=== PATIENT | female | born 1980 | race Two or more races ===

== ENCOUNTER 2025-04-12 10:20 | Inpatient (IN) | payer OTHER ==
[~2025-04-12] VITALS: Ht 165.1 cm; Wt 59.9 kg
[2025-04-12 10:58] VITALS: BP 102/62
[2025-04-12 11:02] VITALS: BP 113/70
[2025-04-20] MEDS ORDERED: POVIDONE-IODINE 118 ML BOTT TOP ONE (07:38)
[2025-04-20] MEDS ORDERED: CHLORHEXIDINE GLUCONATE 120 ML BOTTLE TOP ONE (07:38)
[2025-04-20] MEDS ORDERED: CLINDAMYCIN PHOSPHATE 150 MG/ML (900mg) ONE (07:38)
[2025-04-20] MEDS ORDERED: MORPHINE SULFATE 4 MG/ML CARTRIDGE IV SCH (09:53)
[2025-04-20] MEDS ORDERED: PROMETHAZINE HCL 50 MG/ML AMPUL IV SCH (09:54)
[2025-04-20] MEDS ORDERED: RINGERS SOLUTION,LACTATED 1,000 ML IV SCH (10:00)
[2025-04-20] MEDS ORDERED: MORPHINE SULFATE 4 MG/ML VIAL IV ONE ×4 (10:30→12:00)
[2025-04-20 11:33] LABS: BASO % 0.4 % (0.1-1.2); EOS # 0.13 (0.04-0.54); EOS % 2.3 % (0.7-7.0); LYMPH # 1.80 (1.18-3.74); LYMPH % 32.1 % (19.3-53.1); MEAN PLATELET VOLUME 9.90 fl (9.4-12.4); MONO # 0.38 (0.24-0.82); MONO % 6.8 % (4.7-12.5); NEUT # 3.26 (1.56-6.13); NEUT % 58.2 % (34.0-71.1); RED CELL DISTRIBUTION WIDTH 17.5 % (11.6-14.4)
[2025-04-20 13:11] VITALS: BP 102/62
[2025-04-20] MEDS ORDERED: SIMETHICONE 125 MG CAPSULE PO SCH (14:00)
[2025-04-20 16:20] VITALS: BP 124/62
[2025-04-20] MEDS ORDERED: ACETAMINOPHEN WITH CODEINE 1 UDTAB TABLET PO PRN (17:00)
[2025-04-20 19:00] VITALS: BP 119/73
[2025-04-21 01:00] VITALS: BP 119/63
[2025-04-21 06:05] VITALS: BP 116/65
[2025-04-21 08:15] VITALS: BP 113/61
[2025-04-21] MEDS ORDERED: ACETAMINOPHEN WITH CODEINE 1 UDTAB TABLET PO STA (09:10)
[2025-04-21] MEDS ORDERED: Tylenol #3 PO (09:14)
== END 2025-04-21 09:25 | disposition home or self-care (01) | DRG 743 ==
LOC: O/R 04-20 06:00 → OB/GYN 04-20 06:00 → SURH 04-20 10:45 → OB/GYN 04-20 12:26
PROVIDERS: ADMIT Obstetrics & Gynecology; ATTEND Obstetrics & Gynecology
PROC: 0UT77ZZ Resection of Bilateral Fallopian Tubes, Via Natural or Artificial Opening (ICD-10-PCS; 2025-04-20)
PROC: 0JQC0ZZ Repair Pelvic Region Subcutaneous Tissue and Fascia, Open Approach (ICD-10-PCS; 2025-04-20)
PROC: 0USG0ZZ Reposition Vagina, Open Approach (ICD-10-PCS; 2025-04-20)
PROC: 0TJB8ZZ Inspection of Bladder, Via Natural or Artificial Opening Endoscopic (ICD-10-PCS; 2025-04-20)
PROC: 0UT97ZZ Resection of Uterus, Via Natural or Artificial Opening (ICD-10-PCS; principal; 2025-04-20 11:30)
DX: D25.1 Intramural leiomyoma of uterus (principal); D50.0 Iron deficiency anemia secondary to blood loss (chronic); N81.11 Cystocele, midline; N92.0 Excessive and frequent menstruation with regular cycle

== ENCOUNTER 2025-04-30 11:11 | Inpatient (IN) | payer OTHER ==
[~2025-04-30] VITALS: Ht 160 cm; Wt 59.0 kg
[~2025-04-30 11:11] MED LIST: Tylenol #3 PO
--- NOTE | 2025-04-30 11:48 | NUR ---
SE RECIBE PTE ALERTA Y ORIENTADA X3. REFIERE QUE EL 04/20/[address] MILTON MIMOSO LA REALIZO TRISTIAN HISTERECTOMIA Y DESDE EL MIERCOLES PASADO COMENZO CON FIEBRE, DOLOR ABDOMINAL Y CONSTIPACION. SE MIDE SV Y SE UBICA
[2025-04-30] MEDS ORDERED: 0.9 % SODIUM CHLORIDE 1,000 ML IV SCH (12:15)
[2025-04-30 12:54] LABS: BASO % 0.2 % (0.1-1.2); EOS # 0.05 (0.04-0.54); EOS % 0.2 % (0.7-7.0); LYMPH # 1.41 (1.18-3.74); LYMPH % 6.9 % (19.3-53.1); MEAN PLATELET VOLUME 9.30 fl (9.4-12.4); MONO # 1.58 (0.24-0.82); MONO % 7.7 % (4.7-12.5); NEUT # 17.38 (1.56-6.13); NEUT % 84.6 % (34.0-71.1); RED CELL DISTRIBUTION WIDTH 15.3 % (11.6-14.4)
[2025-04-30 13:16] LABS: URINE APPEARANCE Clear; URINE BILIRRUBIN Negative (NEGATIVE); URINE BLOOD Small; URINE COLOR Dark Yellow; URINE GLUCOSE Negative (NEGATIVE); URINE KETONE 15 (NEGATIVE); URINE LEUKOCYTE Moderate; URINE NITRATE Negative; URINE PROTEIN 30 (NEGATIVE); URINE UROBILINOGEN 1.0 E.U./dl
[2025-04-30 13:20] LABS: URINE BACTERIA 2267.8 uL (0.0-1933); URINE EPITHELIAL CELLS 21.8 uL (0.0-38.8); URINE RBC 31.0 uL (0.0-20.8); URINE WBC 337.6 uL (0.0-23.2)
--- NOTE | 2025-04-30 13:20 | NUR ---
SE ORIENTA PTE SOBRE TX A SEGUIR, LA MISMA REFIERE ENTENDER. SE LEN MUESTRA DE LAB, SE CANALIZA Y SE ADMINISTRA MED ARNOLDO ORDEN MEDICA
[2025-04-30 13:21] LABS: BUN CREA RATIO 14.0 (7.0-25.0); CREATININE SERUM 0.56 mg/dL (0.55-1.02); GFR 118.15; GLUCOSE FASTING 99.0 mg/dL (65-100); OSMOLALITY SERUM 274.0 MOSM/KG (275-295)
[2025-04-30 14:03] LABS: URINE CAST 0.58 uL (0.0-1.40)
[2025-04-30 14:04] LABS: URINE CRYSTALS NEGATIVE /HPF; URINE MUCUS HEAVY; URINE YEAST NEGATIVE /hpf
[2025-04-30] MEDS ORDERED: METRONIDAZOLE/SODIUM CHLORIDE 500 MG/100 ML PIGGYBACK IV SCH (20:12)
[2025-04-30] MEDS ORDERED: ACETAMINOPHEN WITH CODEINE 1 UDTAB TABLET PO PRN (20:15)
[2025-04-30] MEDS ORDERED: RINGERS SOLUTION,LACTATED 1,000 ML IV SCH (20:30)
[2025-04-30] MEDS ORDERED: DOXYCYCLINE HYCLATE 100MG IV SCH (21:00)
[2025-04-30] MEDS ORDERED: SIMETHICONE 125 MG CAPSULE PO SCH (21:22)
[2025-04-30] MEDS ORDERED: METOCLOPRAMIDE HCL 10 MG TABLET PO SCH (21:22)
[2025-05-01 03:40] VITALS: BP 107/68
[2025-05-01 07:57] VITALS: BP 103/61
[2025-05-01] MEDS ORDERED: MORPHINE SULFATE 4 MG/ML VIAL IV SCH (09:05)
[2025-05-01] MEDS ORDERED: TRAMADOL HCL 50 MG TABLET PO SCH (09:06)
[2025-05-01] MEDS ORDERED: AZTREONAM 1,000 MG VIAL IV STA (11:22)
[2025-05-01] MEDS ORDERED: LINEZOLID IN DEXTROSE 5% 600 MG/300 ML PIGGYBAG IV STA (11:22)
[2025-05-01] MEDS ORDERED: POLYETHYLENE GLYCOL 3350 17 GM BLIST.PACK PO SCH (11:23)
[2025-05-01 15:51] VITALS: BP 99/63
[2025-05-01] MEDS ORDERED: LINEZOLID IN DEXTROSE 5% 600 MG/300 ML PIGGYBAG IV SCH ×2 (17:00→21:00)
[2025-05-01] MEDS ORDERED: AZTREONAM 1,000 MG VIAL IV SCH ×3 (17:00→21:00)
[2025-05-01] MEDS ORDERED: LACTOBACILLUS ACIDOPHILUS 1 CAP CAP PO SCH (17:00)
[2025-05-01] MEDS ORDERED: ACETAMINOPHEN WITH CODEINE 1 UDTAB TABLET PO STA (19:02)
[2025-05-01] MEDS ORDERED: ACETAMINOPHEN WITH CODEINE 1 UDTAB TABLET PO PRN (19:15)
[2025-05-01] MEDS ORDERED: MIDAZOLAM HCL 2 MG/2 ML VIAL IV PUSH ONE (21:30)
[2025-05-01] MEDS ORDERED: fentaNYL CITRATE 50 MCG/ML AMPUL IV PUSH NR (21:30)
[2025-05-02] VITALS: BP 96/58
[2025-05-02 08:06] VITALS: BP 101/60
[2025-05-02] MEDS ORDERED: PROMETHAZINE HCL 25 MG/ML AMPUL IV SCH (08:47)
[2025-05-02] MEDS ORDERED: CHLORHEXIDINE GLUCONATE 120 ML BOTTLE TOP SCH (09:00)
[2025-05-02] MEDS ORDERED: CHLORHEXIDINE GLUCONATE 240 ML BOTTLE TOP SCH (09:00)
[2025-05-02 11:31] LABS: BASO % 0.3 % (0.1-1.2); EOS # 0.03 (0.04-0.54); EOS % 0.1 % (0.7-7.0); LYMPH # 0.74 (1.18-3.74); LYMPH % 3.7 % (19.3-53.1); MEAN PLATELET VOLUME 9.80 fl (9.4-12.4); MONO # 0.70 (0.24-0.82); MONO % 3.5 % (4.7-12.5); NEUT # 18.32 (1.56-6.13); NEUT % 91.4 % (34.0-71.1); RED CELL DISTRIBUTION WIDTH 15.3 % (11.6-14.4)
[2025-05-02 12:05] LABS: ALT/SGPT 39.0 U/L (12-78); AST/SGOT 29.0 U/L (15-37); BILIRUBIN TOTAL 0.35 mg/dL (0.3-1.2); BUN CREA RATIO 11.0 (7.0-25.0); CREATININE SERUM 0.55 mg/dL (0.55-1.02); GFR 120.63; GLOBULINA 4.4 G/DL (2.4-3.5); GLUCOSE FASTING 137.0 mg/dL (65-100); OSMOLALITY SERUM 277.0 MOSM/KG (275-295)
[2025-05-02 16:05] VITALS: BP 105/65
[2025-05-02 20:51] VITALS: BP 100/61
[2025-05-03 01:19] VITALS: BP 100/58
[2025-05-03 06:51] LABS: BASO % 0.2 % (0.1-1.2); EOS # 0.13 (0.04-0.54); EOS % 0.6 % (0.7-7.0); LYMPH # 1.87 (1.18-3.74); LYMPH % 8.9 % (19.3-53.1); MEAN PLATELET VOLUME 9.80 fl (9.4-12.4); MONO # 1.12 (0.24-0.82); MONO % 5.3 % (4.7-12.5); NEUT # 17.70 (1.56-6.13); NEUT % 84.0 % (34.0-71.1); RED CELL DISTRIBUTION WIDTH 15.8 % (11.6-14.4)
[2025-05-03 08:14] VITALS: BP 105/69
[2025-05-03] MEDS ORDERED: CLINDAMYCIN PHOSPHATE 150 MG/ML (900mg) IV STA (11:23)
[2025-05-03 14:12] LABS: BASO % 0.2 % (0.1-1.2); EOS # 0.17 (0.04-0.54); EOS % 0.7 % (0.7-7.0); LYMPH # 2.06 (1.18-3.74); LYMPH % 7.9 % (19.3-53.1); MEAN PLATELET VOLUME 9.40 fl (9.4-12.4); MONO # 1.37 (0.24-0.82); MONO % 5.2 % (4.7-12.5); NEUT # 22.00 (1.56-6.13); NEUT % 84.3 % (34.0-71.1); RED CELL DISTRIBUTION WIDTH 15.7 % (11.6-14.4)
[2025-05-03 17:57] LABS: BAND MAN 2.0 %; LYMPHOCYTE MAN 7.0 %; MONOCYTE MAN 3.0 %; NEUTROPHILS MAN 87.0 %
[2025-05-03 20:00] VITALS: BP 113/69
[2025-05-03] MEDS ORDERED: TRAMADOL HCL 50 MG TABLET PO SCH (21:00)
[2025-05-03] MEDS ORDERED: CLINDAMYCIN PHOSPHATE 150 MG/ML (900mg) IV SCH (21:00)
[2025-05-04 01:23] VITALS: BP 105/68
[2025-05-04] MEDS ORDERED: LINEZOLID 600 MG TABLET PO SCH (05:00)
[2025-05-04 09:19] VITALS: BP 111/68
[2025-05-04] MEDS ORDERED: FF) Daptomycin 500 MG/VIAL IV STA (09:57)
[2025-05-04 16:29] VITALS: BP 109/64
[2025-05-04] MEDS ORDERED: SOD FERRIC GLUC COMPLX/SUCROSE 125 MG in 0.9 % SODIUM CHLORIDE 100 ML IV SCH (17:00)
[2025-05-04 21:04] VITALS: BP 118/60
[2025-05-05] VITALS: BP 105/67
[2025-05-05 08:42] VITALS: BP 119/67
[2025-05-05] MEDS ORDERED: (FF) Daptomycin 50 MG/ML IV SCH (09:00)
[2025-05-05] MEDS ORDERED: FF) Daptomycin 500 MG/VIAL IV SCH (09:00)
[2025-05-05 11:58] LABS: BASO % 0.4 % (0.1-1.2); EOS # 0.27 (0.04-0.54); EOS % 1.5 % (0.7-7.0); LYMPH # 1.93 (1.18-3.74); LYMPH % 10.4 % (19.3-53.1); MEAN PLATELET VOLUME 9.30 fl (9.4-12.4); MONO # 0.99 (0.24-0.82); MONO % 5.3 % (4.7-12.5); NEUT # 14.80 (1.56-6.13); NEUT % 79.8 % (34.0-71.1); RED CELL DISTRIBUTION WIDTH 15.7 % (11.6-14.4)
[2025-05-05 12:27] LABS: ERYTHROCYTE SEDIMENTATION RATE 110 mm/hr (0-20)
[2025-05-05 16:41] VITALS: BP 119/59
[2025-05-05 20:30] VITALS: BP 125/77
[2025-05-06] VITALS: BP 105/67
[2025-05-06 08:00] VITALS: BP 126/83
[2025-05-06 16:00] VITALS: BP 119/61
[2025-05-07] VITALS: BP 111/67
[2025-05-07 07:18] LABS: BASO % 0.4 % (0.1-1.2); EOS # 0.31 (0.04-0.54); EOS % 2.1 % (0.7-7.0); LYMPH # 2.33 (1.18-3.74); LYMPH % 15.9 % (19.3-53.1); MEAN PLATELET VOLUME 9.10 fl (9.4-12.4); MONO # 0.94 (0.24-0.82); MONO % 6.4 % (4.7-12.5); NEUT # 10.26 (1.56-6.13); NEUT % 70.1 % (34.0-71.1); RED CELL DISTRIBUTION WIDTH 15.8 % (11.6-14.4)
[2025-05-07 07:41] LABS: ALT/SGPT 10.0 U/L (12-78); AST/SGOT 15.0 U/L (15-37); BILIRUBIN TOTAL 0.11 mg/dL (0.3-1.2); BUN CREA RATIO 17.0 (7.0-25.0); CREATININE SERUM 0.41 mg/dL (0.55-1.02); GFR 169.31; GLOBULINA 3.5 G/DL (2.4-3.5); GLUCOSE FASTING 87.0 mg/dL (65-100); OSMOLALITY SERUM 282.0 MOSM/KG (275-295)
[2025-05-07 08:19] LABS: BAND MAN 3.0 %; EOSINOPHIL MAN 1.0 %; LYMPHOCYTE MAN 16.0 %; METAMYELOCYTE 3.0 %; MONOCYTE MAN 3.0 %; MYELOCYTE 2.0 %; NEUTROPHILS MAN 72.0 %
[2025-05-07 09:24] VITALS: BP 119/60
[2025-05-07 16:45] VITALS: BP 120/74
[2025-05-08] VITALS: BP 110/68
[2025-05-08 07:45] VITALS: BP 118/68
[2025-05-08] MEDS ORDERED: FOLIC ACID 1 MG TABLET PO NR (14:00)
[2025-05-08 16:00] VITALS: BP 128/74
[2025-05-08] MEDS ORDERED: CYANOCOBALAMIN (VITAMIN B-12) 1,000 MCG/ML VIAL IM SCH (17:00)
[2025-05-08 20:00] VITALS: BP 114/68
[2025-05-09] VITALS: BP 125/71
[2025-05-09 07:04] LABS: BASO % 0.2 % (0.1-1.2); EOS # 0.29 (0.04-0.54); EOS % 2.0 % (0.7-7.0); LYMPH # 2.49 (1.18-3.74); LYMPH % 17.0 % (19.3-53.1); MEAN PLATELET VOLUME 9.10 fl (9.4-12.4); MONO # 1.01 (0.24-0.82); MONO % 6.9 % (4.7-12.5); NEUT # 10.14 (1.56-6.13); NEUT % 69.1 % (34.0-71.1); RED CELL DISTRIBUTION WIDTH 16.0 % (11.6-14.4)
[2025-05-09] MEDS ORDERED: FOLIC ACID 1 MG TABLET PO SCH (09:00)
[2025-05-09 10:00] VITALS: BP 97/60
[2025-05-09 10:54] LABS: BAND MAN 2.0 %; EOSINOPHIL MAN 2.0 %; LYMPHOCYTE MAN 21.0 %; MONOCYTE MAN 5.0 %
[2025-05-09 10:55] LABS: NEUTROPHILS MAN 70.0 %
[2025-05-09 16:19] VITALS: BP 125/73
[2025-05-09 23:54] VITALS: BP 113/67
[2025-05-10 04:30] VITALS: BP 118/71
[2025-05-10 16:32] VITALS: BP 110/71
[2025-05-10] MEDS ORDERED: levoFLOXacin IN DEXTROSE 5 % 5 MG/ML PIGGYBAG IV SCH (17:00)
[2025-05-11 00:39] VITALS: BP 114/71
[2025-05-11 04:00] VITALS: BP 109/60
[2025-05-11 06:19] LABS: BASO % 0.4 % (0.1-1.2); EOS # 0.22 (0.04-0.54); EOS % 1.3 % (0.7-7.0); LYMPH # 2.25 (1.18-3.74); LYMPH % 13.7 % (19.3-53.1); MEAN PLATELET VOLUME 8.80 fl (9.4-12.4); MONO # 1.06 (0.24-0.82); MONO % 6.5 % (4.7-12.5); NEUT # 12.35 (1.56-6.13); NEUT % 75.5 % (34.0-71.1); RED CELL DISTRIBUTION WIDTH 17.2 % (11.6-14.4)
[2025-05-11 07:03] LABS: BUN CREA RATIO 16.0 (7.0-25.0); CREATININE SERUM 0.51 mg/dL (0.55-1.02); GFR 131.62; GLUCOSE FASTING 82.0 mg/dL (65-100); OSMOLALITY SERUM 279.0 MOSM/KG (275-295)
[2025-05-11 08:42] VITALS: BP 114/67; O2SAT 99
[2025-05-11 19:12] VITALS: BP 100/58
[2025-05-12] VITALS: BP 90/55
[2025-05-12 09:37] VITALS: BP 108/75
[2025-05-12 16:46] VITALS: BP 117/63
[2025-05-13 01:20] VITALS: BP 117/74
[2025-05-13 08:44] VITALS: BP 113/64
[2025-05-13 20:03] VITALS: BP 112/75
[2025-05-14] VITALS: BP 112/62
[2025-05-14 08:00] VITALS: BP 114/74
[2025-05-14 08:35] LABS: BASO % 0.4 % (0.1-1.2); EOS # 0.21 (0.04-0.54); EOS % 2.2 % (0.7-7.0); LYMPH # 2.07 (1.18-3.74); LYMPH % 21.9 % (19.3-53.1); MEAN PLATELET VOLUME 9.30 fl (9.4-12.4); MONO # 0.69 (0.24-0.82); MONO % 7.3 % (4.7-12.5); NEUT # 6.39 (1.56-6.13); NEUT % 67.5 % (34.0-71.1); RED CELL DISTRIBUTION WIDTH 17.3 % (11.6-14.4)
[2025-05-14 09:04] LABS: BUN CREA RATIO 16.0 (7.0-25.0); CREATININE SERUM 0.51 mg/dL (0.55-1.02); GFR 131.62; GLUCOSE FASTING 78.0 mg/dL (65-100); OSMOLALITY SERUM 277.0 MOSM/KG (275-295)
[2025-05-14] MEDS ORDERED: METRONIDAZOLE500 MG PO (09:34)
[2025-05-14] MEDS ORDERED: LEVOFLOXACIN750 MG PO (09:34)
[2025-05-14] MEDS ORDERED: PEPCID AC20 MG PO (09:35)
[2025-05-14] MEDS ORDERED: INTESTINEX680 M1 PO (09:35)
[2025-05-14] MEDS ORDERED: MAXFE CAPLET1 EAC1 PO (09:42)
== END 2025-05-14 09:56 | disposition home or self-care (01) | DRG 759 ==
LOC: ER 11:11 → OB/GYN 20:32
PROVIDERS: Emergency Medicine; Internal Medicine Infectious Disease; Obstetrics & Gynecology; ADMIT Obstetrics & Gynecology; ATTEND Obstetrics & Gynecology
PROC: BW21ZZZ Computerized Tomography (CT Scan) of Abdomen and Pelvis (ICD-10-PCS; principal; 2025-04-30)
PROC: 0W9G3ZZ Drainage of Peritoneal Cavity, Percutaneous Approach (ICD-10-PCS; 2025-05-01)
PROC: BW21Y0Z Computerized Tomography (CT Scan) of Abdomen and Pelvis using Other Contrast, Unenhanced and Enhanced (ICD-10-PCS; 2025-05-04)
PROC: BW21ZZZ Computerized Tomography (CT Scan) of Abdomen and Pelvis (ICD-10-PCS; 2025-05-11)
DX: N73.9 Female pelvic inflammatory disease, unspecified (principal); G89.18 Other acute postprocedural pain; Z88.8 Allergy status to other drugs, medicaments and biological substances; Z88.0 Allergy status to penicillin; Z91.013 Allergy to seafood; B95.2 Enterococcus as the cause of diseases classified elsewhere; B96.89 Other specified bacterial agents as the cause of diseases classified elsewhere